=== PATIENT | male | born 1960 | race Caucasian/White ===

== ENCOUNTER 2017-07-12 11:23 | Day surgery (SDC) | payer BC ==
[2017-07-12] MEDS ORDERED: LIDOCAINE 4% SOLUTION 50 ML BTL (14:04)
[2017-07-12] MEDS ORDERED: MIDAZOLAM 1 MG/ML 2 ML INJ ×2 (14:51)
[2017-07-12] MEDS ORDERED: MEPERIDINE 50 MG INJ (14:51)
[2017-07-12] MEDS ORDERED: FENTAnyl 50 MCG/ML VIAL (14:51)
== END 2017-07-12 17:08 | disposition home or self-care (01) ==
LOC: GIL 11:23
DX: Z12.11 Encounter for screening for malignant neoplasm of colon (principal); K44.9 Diaphragmatic hernia without obstruction or gangrene; K29.60 Other gastritis without bleeding; I10 Essential (primary) hypertension
CPT/HCPCS: 43239; 88305; 88312